=== PATIENT | female | born 1955 | race Caucasian/White ===

== ENCOUNTER 2021-07-01 08:02 | Emergency (ER) | payer MEDICARE ==
[~2021-07-01 08:02] MED LIST: ALBUTEROL2.5 MG/3 M INH; BENZONATATE100 MG PO; BREO ELLIPTA 11 EACH INH; COLACE 100MG C100 MG PO; DALIRESP 500500 MCG PO; FLONASE 0.05% N16 GM; HUMIBID LA TAB600 MG PO; KLONOPIN TAB 00.5 MG PO; LEVAQUIN500 MG PO; LEXAPRO20 MG PO; MUCINEX600 MG PO; PERCOCET 5-3251 EACH PO; PREDNISONE10 MG PO; PREDNISONE20 MG PO; SPIRIVA18 MCG INH; TYLENOL 500 MG500 MG PO; VENTOLIN HFA 66.7 GM INH
[2021-07-01 10:19] LABS: HEMOGLOBIN 13.5 gm/dl (12.3-15.3); RED BLOOD COUNT 4.45 M/UL (4.00-5.10); WHITE BLOOD COUNT 12.2 K/UL (4.5-11.0)
[2021-07-01 10:49] LABS: BUN/CREATININE RATIO 25 (0-10)
[2021-07-01] MEDS ORDERED: CEFDINIR300 MG PO (14:33)
[2021-07-01] MEDS ORDERED: MOBIC15 MG PO (14:33)
[2021-07-01] MEDS ORDERED: AZITHROMYCIN500 MG PO (14:33)
== END 2021-07-01 16:15 | disposition home or self-care (01) ==
LOC: ER1 08:02
PROVIDERS: Physician Assistant
DX: M54.12 Radiculopathy, cervical region (principal); J18.9 Pneumonia, unspecified organism; R04.0 Epistaxis; E78.5 Hyperlipidemia, unspecified; Z79.899 Other long term (current) drug therapy; Z20.822 Contact with and (suspected) exposure to COVID-19
CPT/HCPCS: 36415; 70450; 71045; 72125; 80053; 81001; 82550; 82553; 83605; 83874; 84484; 85025; 87040; 93005; 96374; 96375; 99284; J0456; J0696; J7030; U0002

== ENCOUNTER 2021-11-11 01:49 | Emergency (ER) | payer MEDICARE ==
[~2021-11-11 01:49] MED LIST changes: +AZITHROMYCIN500 MG PO; +CEFDINIR300 MG PO; +MOBIC15 MG PO
[2021-11-11 02:24] LABS: HEMOGLOBIN 13.8 gm/dl (12.3-15.3); RED BLOOD COUNT 4.71 M/UL (4.00-5.10); WHITE BLOOD COUNT 10.9 K/UL (4.5-11.0)
[2021-11-11 02:53] LABS: BUN/CREATININE RATIO 28 (0-10)
[2021-11-11] MEDS ORDERED: ATIVAN0.5 MG PO (05:10)
[2021-11-11] MEDS ORDERED: K-TAB ER20 MEQ PO (05:15)
[2021-11-11] MEDS ORDERED: ZOFRAN 4 MG TAB4 MG PO (05:15)
[2021-11-11] MEDS ORDERED: PREDNISONE 10 M10 MG PO (05:16)
[2021-11-11] MEDS ORDERED: CEPHALEXIN500 MG PO (05:45)
[2021-11-11] MEDS ORDERED: CORTISPORIN OTI10 ML EARBOTH (05:56)
== END 2021-11-11 05:35 | disposition home or self-care (01) ==
LOC: ER1 01:49
PROVIDERS: Physician Assistant
DX: J44.1 Chronic obstructive pulmonary disease with (acute) exacerbation (principal); E87.6 Hypokalemia; R11.0 Nausea; F41.9 Anxiety disorder, unspecified; Z20.822 Contact with and (suspected) exposure to COVID-19; Z85.41 Personal history of malignant neoplasm of cervix uteri
CPT/HCPCS: 36600; 71045; 80053; 80307; 81001; 82550; 82553; 82803; 83605; 83615; 83874; 83880; 84484; 85025; 87040; 87086; 93005; 94640; 94664; 96365; 96375; 99285; J0696; J2405; Q9967; U0002

== ENCOUNTER 2021-12-28 08:09 | Inpatient (IN) | payer OTHER ==
[~2021-12-28] VITALS: Ht 170.2 cm; Wt 72.6 kg
[~2021-12-28 08:09] MED LIST changes: +ATIVAN0.5 MG PO; +CEPHALEXIN500 MG PO; +CORTISPORIN OTI10 ML EARBOTH; +K-TAB ER20 MEQ PO; +PREDNISONE 10 M10 MG PO; -SPIRIVA18 MCG INH; -VENTOLIN HFA 66.7 GM INH; +ZOFRAN 4 MG TAB4 MG PO
[2021-12-28 08:39] LABS: HEMOGLOBIN 12.7 gm/dl (12.3-15.3); RED BLOOD COUNT 4.31 M/UL (4.00-5.10); WHITE BLOOD COUNT 10.7 K/UL (4.5-11.0)
[2021-12-28 09:12] LABS: BUN/CREATININE RATIO 18 (0-10)
[2021-12-28] MEDS ORDERED: PROVENTIL HFA6.7 GM INH (10:15)
[2021-12-28] MEDS ORDERED: SPIRIVA RESPIMAT4 GM INH (10:18)
[2021-12-28] MEDS ORDERED: SYMBICORT 16010.2 GM INH (11:38)
[2021-12-28] MEDS ORDERED: IBU800 MG PO (11:38)
[2021-12-28] MEDS ORDERED: MONTELUKAST SOD10 MG PO (11:39)
[2021-12-28] MEDS ORDERED: HYDROCHLOROTHIA50 MG PO (11:40)
[2021-12-28] MEDS ORDERED: LORAZEPAM0.5 MG PO (11:41)
[2021-12-28] MEDS ORDERED: OMEPRAZOLE40 MG PO (11:41)
[2021-12-28] MEDS ORDERED: ASPIRIN EC81 MG PO (11:44)
[2021-12-28] MEDS ORDERED: SENNA8.6 MG PO (11:45)
[2021-12-29 04:09] LABS: HEMOGLOBIN 11.6 gm/dl (12.3-15.3); RED BLOOD COUNT 3.94 M/UL (4.00-5.10); WHITE BLOOD COUNT 10.7 K/UL (4.5-11.0)
[2021-12-29 04:37] LABS: BUN/CREATININE RATIO 25 (0-10)
--- NOTE | 2021-12-29 04:42 | NUR ---
VSS. 3L NC. POTASSIUM REPLACED X2, AM LABS SHOW POTASSIUM WNL AT 3.6 NOW. NO COMPLAINTS AT THIS TIME
[2021-12-30 03:21] LABS: HEMOGLOBIN 11.6 gm/dl (12.3-15.3); RED BLOOD COUNT 3.87 M/UL (4.00-5.10)
[2021-12-30 03:34] LABS: WHITE BLOOD COUNT 25.6 K/UL (4.5-11.0)
[2021-12-30 03:57] LABS: BUN/CREATININE RATIO 32 (0-10)
[2021-12-31 05:01] LABS: HEMOGLOBIN 11.7 gm/dl (12.3-15.3); RED BLOOD COUNT 3.98 M/UL (4.00-5.10); WHITE BLOOD COUNT 21.6 K/UL (4.5-11.0)
[2021-12-31 05:02] LABS: BUN/CREATININE RATIO 32 (0-10)
[2021-12-31] MEDS ORDERED: CEFUROXIME500 MG PO (10:09)
[2021-12-31] MEDS ORDERED: PREDNISONE10 M1 PO (12:28)
[2021-12-31] MEDS ORDERED: DALIRESP250 MCG PO (12:28)
[2021-12-31 17:09] LABS: ORGANISM ID Not indicated. (.); SPECIMEN SOURCE Urine (.); STREPTOCOCCUS PNEUMONIAE AG Negative (Negative)
== END 2021-12-31 13:02 | disposition home or self-care (01) | DRG 193 ==
LOC: ER1 08:09 → CDU 10:50 → M/S 10:50
PROVIDERS: Nurse Practitioner; Physician Assistant Medical; ADMIT Internal Medicine
DX: J18.9 Pneumonia, unspecified organism (principal); J96.21 Acute and chronic respiratory failure with hypoxia; J44.0 Chronic obstructive pulmonary disease with (acute) lower respiratory infection; J44.1 Chronic obstructive pulmonary disease with (acute) exacerbation; R04.2 Hemoptysis; Z20.822 Contact with and (suspected) exposure to COVID-19; F41.9 Anxiety disorder, unspecified; K59.00 Constipation, unspecified; I10 Essential (primary) hypertension; T38.0X5A Adverse effect of glucocorticoids and synthetic analogues, initial encounter; D72.829 Elevated white blood cell count, unspecified; Z99.81 Dependence on supplemental oxygen; Z90.710 Acquired absence of both cervix and uterus; Z98.890 Other specified postprocedural states; Z87.891 Personal history of nicotine dependence; Z80.1 Family history of malignant neoplasm of trachea, bronchus and lung
CPT/HCPCS: 0240U; 36415; 36600; 71045; 80048; 80053; 81001; 82550; 82553; 82803; 83036; 83605; 83735; 83880; 84100; 84132; 84484; 85025; 85027; 86140; 87040; 87070; 87086; 87205; 87278; 87899; 93005; 94640; 94664; 94760; 96374; 96375; 99285; J0456; J0696; J1650; J2920; J2930; J7030

== ENCOUNTER → 2022-02-03 | Outpatient (CLI) | payer OTHER ==
[~2022-02-03] MED LIST changes: +ASPIRIN EC81 MG PO; +CEFUROXIME500 MG PO; +DALIRESP250 MCG PO; +HYDROCHLOROTHIA50 MG PO; +IBU800 MG PO; +LORAZEPAM0.5 MG PO; +MONTELUKAST SOD10 MG PO; +OMEPRAZOLE40 MG PO; +PREDNISONE10 M1 PO; +PROVENTIL HFA6.7 GM INH; +SENNA8.6 MG PO; +SPIRIVA RESPIMAT4 GM INH; +SYMBICORT 16010.2 GM INH
== END ==
LOC: EXRD 15:25
DX: J44.9 Chronic obstructive pulmonary disease, unspecified (principal)
CPT/HCPCS: 71046

== ENCOUNTER → 2022-02-13 | Outpatient (CLI) | payer OTHER | LOC: EXRD 13:08 | DX: M54.2 Cervicalgia (principal); M47.812 Spondylosis without myelopathy or radiculopathy, cervical region | CPT/HCPCS: 72050 ==

== ENCOUNTER 2022-05-14 15:55 | Emergency (ER) | payer MEDICARE ==
[2022-05-14 16:49] LABS: HEMOGLOBIN 12.8 gm/dl (12.3-15.3); RED BLOOD COUNT 4.45 M/UL (4.00-5.10); WHITE BLOOD COUNT 9.8 K/UL (4.5-11.0)
[2022-05-14 17:34] LABS: BUN/CREATININE RATIO 21 (0-10)
== END 2022-05-14 23:05 | disposition home or self-care (01) ==
LOC: ER1 15:55
PROVIDERS: Physician Assistant Medical
DX: U07.1 COVID-19 (principal); Z23 Encounter for immunization; E78.5 Hyperlipidemia, unspecified; J44.9 Chronic obstructive pulmonary disease, unspecified; I10 Essential (primary) hypertension; Z87.891 Personal history of nicotine dependence
CPT/HCPCS: 0240U; 36600; 71045; 80053; 82550; 82553; 82803; 83605; 84484; 85025; 87040; 93005; 94640; 94664; 94760; 96361; 96374; 99285; J2930; M0222